=== PATIENT | female | born 1980 | race Caucasian/White ===

== ENCOUNTER 2018-01-10 07:09 | Emergency (ER) | payer BC, OTHER ==
[~2018-01-10] VITALS: Ht 175.3 cm; Wt 117.9 kg
[2018-01-10] MEDS ORDERED: DEXAMETHASONE 0.5 MG/5 ML ELIX PO SCH (07:30)
[2018-01-10] MEDS ORDERED: PENICILLIN G BENZATHINE 600000 UNIT/1 ML IM STA (07:59)
[2018-01-10] MEDS ORDERED: SODIUM CHLORIDE 0.9% 1000ML 2,000 ML ONE (08:57)
== END 2018-01-10 09:20 | disposition home or self-care (01) ==
LOC: ER 07:09
DX: J02.0 Streptococcal pharyngitis (principal); F17.210 Nicotine dependence, cigarettes, uncomplicated
CPT/HCPCS: 83518; 87070; 99283; J0561; J7030

== ENCOUNTER 2018-01-13 10:54 | Emergency (ER) | payer SELFPAY ==
[~2018-01-13] VITALS: Ht 175.3 cm; Wt 117.9 kg
[2018-01-13] MEDS ORDERED: KETOROLAC TROMETHAMINE 60 MG/2 ML VIAL IM ONE (11:30)
[2018-01-13 12:04] VITALS: BP 142/78
== END 2018-01-13 12:10 | disposition home or self-care (01) ==
LOC: ER 10:54
DX: J02.9 Acute pharyngitis, unspecified (principal)
CPT/HCPCS: 83518; 99283; J1885

== ENCOUNTER 2020-09-17 17:06 | Emergency (ER) | payer OTHER, BC ==
[~2020-09-17] VITALS: Ht 175.3 cm; Wt 122.5 kg
[2020-09-17] MEDS ORDERED: IBUPROFEN 600 MG TAB PO STA (17:15)
[2020-09-17] MEDS ORDERED: IBUPROFEN 600 MG TAB ONE (17:27)
[2020-09-17] MEDS ORDERED: ULTRAM50 MG PO (17:58)
== END 2020-09-17 18:38 | disposition home or self-care (01) ==
LOC: ER 17:19
DX: S62.616A Displaced fracture of proximal phalanx of right little finger, initial encounter for closed fracture (principal); W01.0XXA Fall on same level from slipping, tripping and stumbling without subsequent striking against object, initial encounter; Y93.01 Activity, walking, marching and hiking; Y92.008 Other place in unspecified non-institutional (private) residence as the place of occurrence of the external cause
CPT/HCPCS: 99283

== ENCOUNTER 2021-09-06 17:29 | Emergency (ER) | payer BC, OTHER ==
[~2021-09-06] VITALS: Ht 175.3 cm; Wt 136.1 kg
[~2021-09-06 17:29] MED LIST: ULTRAM50 MG PO
[2021-09-06] MEDS ORDERED: ULTRAM 50MG50 MG PO (19:51)
[2021-09-06 20:07] VITALS: BP 170/89
== END 2021-09-06 20:10 | disposition home or self-care (01) ==
LOC: ER 19:42
DX: M79.605 Pain in left leg (principal); Z87.442 Personal history of urinary calculi; X50.1XXA Overexertion from prolonged static or awkward postures, initial encounter; Y92.89 Other specified places as the place of occurrence of the external cause
CPT/HCPCS: 93971; 99283

== ENCOUNTER 2021-11-19 09:36 | Emergency (ER) | payer BC, OTHER ==
[~2021-11-19] VITALS: Ht 175.3 cm; Wt 136.1 kg
[~2021-11-19 09:36] MED LIST changes: +ULTRAM 50MG50 MG PO
== END 2021-11-19 11:42 | disposition home or self-care (01) ==
LOC: ER 09:40
DX: M25.511 Pain in right shoulder (principal); W01.0XXA Fall on same level from slipping, tripping and stumbling without subsequent striking against object, initial encounter; Y93.01 Activity, walking, marching and hiking; Y99.0 Civilian activity done for income or pay
CPT/HCPCS: 99282